=== PATIENT | female | born 1990 | race African-American/Black ===

== ENCOUNTER 2017-09-13 17:07 | Emergency (ER) | payer SELFPAY ==
[2017-09-13 17:19] VITALS: BP 117/64
--- NOTE | 2017-09-13 18:08 | RAD ---
Indication: Left orbit injury. AP, lateral, Leigh view of the orbits demonstrates no radiopaque foreign body. There appears to be nasal jewelry and tongue jewelry present. No other foreign body is noted. impression: No foreign body is noted in the orbits however jewelry in the nose and tongue noted.
[2017-09-13] MEDS ORDERED: Tetan/Diph/Pertus SYR(Tdap)* 0.5 ML SYR(BOOSTRIX) use SYR IM ONE ×2 (18:41→18:43)
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
== END 2017-09-13 18:57 | disposition home or self-care (01) ==
LOC: UCEAST 17:07
DX: S09.90XA Unspecified injury of head, initial encounter (principal); S01.112A Laceration without foreign body of left eyelid and periocular area, initial encounter; W50.0XXA Accidental hit or strike by another person, initial encounter; Y93.F9 Activity, other caregiving; Y92.199 Unspecified place in other specified residential institution as the place of occurrence of the external cause; Y99.0 Civilian activity done for income or pay; Z23 Encounter for immunization; J45.909 Unspecified asthma, uncomplicated; F32.9 Major depressive disorder, single episode, unspecified; Z90.49 Acquired absence of other specified parts of digestive tract; F17.210 Nicotine dependence, cigarettes, uncomplicated
CPT/HCPCS: 12001; 12011; 70150; 90471; 90715; 99212; G0463

== ENCOUNTER 2017-10-22 10:34 | Emergency (ER) | payer BC, OTHER ==
[2017-10-22] MEDS ORDERED: Ketorolac INJ* 60 MG/2 ML VIAL IM ONE (12:06)
[2017-10-22] MEDS ORDERED: Ketorolac INJ* 60 MG/2 ML VIAL ONE (12:08)
[2017-10-22] MEDS ORDERED: Clindamycin 600 MG IVPREMIX(* 600 MG/50 ML SDV IV ONE (12:16)
[2017-10-22] MEDS ORDERED: Ketorolac INJ* 30 MG/ML 1 ML VIAL IV PUSH ONE (12:16)
[2017-10-22] MEDS ORDERED: Ketorolac INJ* 15 MG/ML 1 ML VIAL IV PUSH ONE (12:16)
[2017-10-22] MEDS ORDERED: Ondansetron INJ* 2 MG/ML VIAL IV ONE (12:23)
[2017-10-22] MEDS ORDERED: Ondansetron INJ* 2 MG/ML VIAL ONE (12:24)
[2017-10-22] MEDS ORDERED: Lidocaine 1%* 5 ML VIAL INJ ONE (13:19)
--- NOTE | 2017-10-22 13:43 | ED ---
Throat Pain/Nasal Congestion - HPI Summary HPI Summary: 27F presents with dental pain for a week. She was seen by her dentist yesterday and started on amoxicillin and percocet. She states since last night the right side of her jaw has swollen up. She states she called her dentist and they told her to come here. She denies any drainage from the area. She denies any fever. She denies any chest pain, sob, of difficulty swallowing. She has appointment with her dentist tomorrow. She has only been taking percocet for her pain. - History of Current Complaint Chief Complaint: EDDentalPain Time Seen by Provider: 10/22/17 12:05 - Allergies/Home Medications Allergies/Adverse Reactions: Allergies Allergy/AdvReac Type Severity Reaction Status Date / Time No Known Allergies Allergy Verified 04/23/15 16:45 PMH/Surg Hx/FS Hx/Imm Hx Endocrine/Hematology History: Denies: Hx Diabetes Respiratory History: Reports: Hx Asthma - EXERCISE INDUCED Sensory History: Reports: Hx Contacts or Glasses Opthamlomology History: Reports: Hx Contacts or Glasses Psychiatric History: Reports: Hx Anxiety, Hx Depression, Hx Substance Abuse Denies: Hx of Violent Episodes Against Others - Surgical History Surgery Procedure, Year, and Place: cholecystectomy 2006 Infectious Disease History: No Infectious Disease History: Denies: History Other Infectious Disease, Traveled Outside the [place] in Last 30 Days - Family History Known Family History: Negative: Cardiac Disease, Hypertension, Diabetes - Social History Alcohol Use: Rare Substance Use Type: Reports: None Substance Use Comment - Amount & Last Used: marijuana occasionaly Smoking Status (MU): Light Every Day Tobacco Smoker Type: Cigarettes Amount Used/How Often: 1/4 PPD Length of Time of Smoking/Using Tobacco: 10 YEARS Have You Smoked in the Last Year: Yes Review of Systems Negative: Fever Positive: Dental Pain Negative: Chest Pain Negative: Shortness Of Breath All Other Systems Reviewed And Are Negative: Yes Physical Exam Triage Information Reviewed: Yes Vital Signs On Initial Exam: Initial Vitals Temp Pulse Resp BP Pulse Ox 98.4 F 70 18 125/71 100 10/22/17 10:36 10/22/17 10:36 10/22/17 10:36 10/22/17 10:36 10/22/17 10:36 Vital Signs Reviewed: Yes Appearance: Positive: Well-Appearing Skin: Positive: Warm, Dry Head/Face: Positive: Normal Head/Face Inspection Eyes: Positive: Normal, EOMI, HO, Conjunctiva Clear ENT: Positive: Normal ENT inspection, Pharynx normal, TMs normal Dental: Positive: Percussion Tenderness @ - 30, Abscess @ - 30, Other - no submandibular tenderness Neck: Positive: Supple, Nontender, No Lymphadenopathy Respiratory/Lung Sounds: Positive: Clear to Auscultation, Breath Sounds Present Cardiovascular: Positive: Normal, RRR Musculoskeletal: Positive: Normal Neurological: Positive: Normal Psychiatric: Positive: Normal - [place] Coma Scale Coma Scale Total: 15 Procedures - Incision and Drainage Site: lower right dental abscess Anesthesia: Topical, Local Instrument(s): Scalpel Diagnostics - Vital Signs Vital Signs Temp Pulse Resp BP Pulse Ox 10/22/17 10:36 98.4 F 70 18 125/71 100 - Laboratory Lab Statement: Any lab studies that have been ordered have been reviewed, and results considered in the medical decision making process. EENT Course/Dx - Course Course Of Treatment: 27F presents with dental pain for a week. She was seen by her dentist yesterday and started on amoxicillin and percocet. She states since last night the right side of her jaw has swollen up. She states she called her dentist and they told her to come here. She denies any drainage from the area. She denies any fever. She denies any chest pain, sob, of difficulty swallowing. She has appointment with her dentist tomorrow. She has only been taking percocet for her pain. on exam tenderness tooth 30 and abscess there. attempt I&D and minimial drainage from area. gave dose of iv clindamycin and toradol and feeling better. edenilson switch to clindamycin as will give better coverage. patient understand and agrees with plan. - Differential Diagnoses Differential Diagnoses: Dental Abscess, Dental Caries, Fractured Tooth - Diagnoses Provider Diagnoses: Dental abscess Discharge - Discharge Plan Condition: Good Disposition: HOME Prescriptions: Clindamycin HCl [Clindamycin 150 MG CAP*] 300 mg PO TID #61 cap Patient Education Materials: Dental Abscess (ED) Referrals: No Primary Care Phys,NOPCP [Primary Care Provider] - Additional Instructions: Take antibiotics: 2 tablets three times a day for 7 days Use ibuprofen every 6 hours and use pain medication as prescribed Place heat on area and gargle salt water Avoid hard, crunchy food until seen by dentist Return to ED if develop fever, shortness of breath, pain with eye movement or swelling around eye Images - Images Dental: 1 - dental pain
[2017-10-22] MEDS ORDERED: oxyCODONE/Acetamin 5/325 MG* TAB PO ONE (13:53)
[2017-10-22] MEDS ORDERED: oxyCODONE/Acetamin 5/325 MG* TAB ONE (13:56)
[2017-10-22 14:02] VITALS: BP 125/70
== END 2017-10-22 14:08 | disposition home or self-care (01) ==
LOC: ED 10:34
DX: K04.7 Periapical abscess without sinus (principal); F17.210 Nicotine dependence, cigarettes, uncomplicated
CPT/HCPCS: 96372; 96374; 99282; A9270-GY; J1885; J2405

== ENCOUNTER 2017-10-23 08:47 | Emergency (ER) | payer OTHER ==
[2017-10-23 10:34] VITALS: BP 128/62
--- NOTE | 2017-11-12 18:37 | ED ---
Cathryn Dunlap Thomas, scribed for Cyrus Solomon MD on 10/23/17 at 1020 . Throat Pain/Nasal Congestion - HPI Summary HPI Summary: The patient is a 27 year old female presenting to the ED complaining of right- sided dental pain since a week ago. She was [place] [facility] [place], and her pain has worsened since then and the swelling has grown. The pain is constant. The pain is rated 9/10. The pain is aggravated by eating and drinking. It is alleviated by nothing. Patient denies fever and chills. She is on Clindamycin. Her scheduled dentists appointment is next week. - History of Current Complaint Chief Complaint: EDDentalPain Time Seen by Provider: 10/23/17 09:57 Hx Obtained From: Patient Onset/Duration: Lasting Weeks - 1, Still Present Severity: Moderate Associated Signs And Symptoms: Positive: Negative Cough: None Related History: Other (Noted In Comments) - Dentist appointment next week - Allergies/Home Medications Allergies/Adverse Reactions: Allergies Allergy/AdvReac Type Severity Reaction Status Date / Time No Known Allergies Allergy Verified 04/23/15 16:45 PMH/Surg Hx/FS Hx/Imm Hx Previously Healthy: No Endocrine/Hematology History: Denies: Hx Diabetes Respiratory History: Reports: Hx Asthma - EXERCISE INDUCED Sensory History: Reports: Hx Contacts or Glasses Opthamlomology History: Reports: Hx Contacts or Glasses Psychiatric History: Reports: Hx Anxiety, Hx Depression, Hx Substance Abuse Denies: Hx of Violent Episodes Against Others - Surgical History Surgery Procedure, Year, and Place: cholecystectomy 2006 Infectious Disease History: No Infectious Disease History: Denies: History Other Infectious Disease, Traveled Outside the [place] in Last 30 Days - Family History Known Family History: Negative: Cardiac Disease, Hypertension, Diabetes - Social History Alcohol Use: Rare Substance Use Type: Reports: None Substance Use Comment - Amount & Last Used: marijuana occasionaly Smoking Status (MU): Light Every Day Tobacco Smoker Type: Cigarettes Amount Used/How Often: 1/4 PPD Length of Time of Smoking/Using Tobacco: 10 YEARS Have You Smoked in the Last Year: Yes Review of Systems Negative: Fever, Chills Positive: Dental Pain All Other Systems Reviewed And Are Negative: Yes Physical Exam - Summary Physical Exam Summary: Appearance: Well-appearing, Well-nourished Skin: Warm, Dry, No rash Eyes: Normal, PERRL, EOMI, sclera anicteric ENT: Her right lower jaw is swollen. Neck: Supple, nontender. She has tender lymphadenopathy under the right jaw that is submandibular and anterior cervical. Respiratory: Clear to auscultation Cardiovascular: S1, S2, no murmur, no rub, no gallop Abdomen: Soft, nontender, no organomegaly Bowel sounds: Present Musculoskeletal: Normal, Strength/ROM Intact, no edema, pulses symmetrical Neurological: Normal, A&Ox3, cranial nerves II-XII WNL, follows commands, gait not tested, sensation intact to pin and light touch Psychiatric: affect normal, behavior appropriate, dressed appropriately, judgment intact Triage Information Reviewed: Yes Vital Signs On Initial Exam: Initial Vitals Temp Pulse Resp BP Pulse Ox 97.3 F 78 18 134/66 97 10/23/17 08:50 10/23/17 08:50 10/23/17 08:50 10/23/17 08:50 10/23/17 08:50 Vital Signs Reviewed: Yes Diagnostics - Vital Signs Vital Signs Temp Pulse Resp BP Pulse Ox 10/23/17 08:50 97.3 F 78 18 134/66 97 - Laboratory Lab Statement: Any lab studies that have been ordered have been reviewed, and results considered in the medical decision making process. EENT Course/Dx - Course Assessment/Plan: The patient comes in pain control for a dental abscess that is currently being treated with Clindamycin. The patient was given pain medication and a prescprition. She is discharged to follow up at her scheduled appointment with her dentist next week. - Diagnoses Provider Diagnoses: Dental abscess Discharge - Discharge Plan Condition: Good Disposition: HOME Prescriptions: oxyCODONE/Acetamin 5/325 MG* [Percocet 5/325 TAB*] 1 tab PO Q6H PRN 7 Days #28 tab MDD 4 PRN Reason: Pain Patient Education Materials: Dental Abscess (ED) Referrals: No Primary Care Phys,NOPCP [Primary Care Provider] - The documentation as recorded by the Cathryn rowell Thomas accurately reflects the service I personally performed and the decisions made by me, Cyrus Solomon MD.
== END 2017-10-23 10:30 | disposition home or self-care (01) ==
LOC: ED 08:47
DX: K04.7 Periapical abscess without sinus (principal); K08.89 Other specified disorders of teeth and supporting structures; F17.210 Nicotine dependence, cigarettes, uncomplicated
CPT/HCPCS: 99281

== ENCOUNTER 2017-10-23 19:11 | Emergency (ER) | payer OTHER ==
[2017-10-23 20:35] LABS: Hematocrit 35 % (35-47); Hemoglobin 11.9 g/dl (12.0-16.0); Mean Corpuscular HGB Conc 34 g/dl (31-36); Mean Corpuscular Hemoglobin 30 pg (27-31); Mean Corpuscular Volume 90 fL (80-97); Mean Platelet Volume 9 um3 (7.4-10.4); Red Blood Count 3.92 10^6/ul (4.0-5.4); Red Cell Distribution Width 13 % (10.5-15); White Blood Count 6.9 10^3/ul (3.5-10.8)
[2017-10-23] MEDS ORDERED: Ketorolac INJ* 30 MG/ML 1 ML VIAL IV PUSH ONE (20:39)
[2017-10-23] MEDS ORDERED: Clindamycin 600 MG IVPREMIX(* 600 MG/50 ML SDV IV ONE (20:41)
[2017-10-23 20:49] LABS: BUN/Creatinine Ratio 25.5 (8-20); Calcium 9.2 mg/dL (8.6-10.3); EGFR African American 171.8 (>60); EGFR Non-African American 133.6 (>60); Potassium 3.6 mmol/L (3.5-5.0)
[2017-10-23] MEDS ORDERED: Iohexol 300* (CONTRAST) 10 ML SDV IV ONE (20:53)
--- NOTE | 2017-10-23 21:17 | RAD ---
HISTORY: Right facial swelling, dental pain COMPARISONS: None TECHNIQUE: Multiple contiguous axial CT scans were obtained of the face with intravenous contrast, with coronal and sagittal multiplanar reformations. FINDINGS: Evaluation limited by streak artifact from dental amalgam.. BONES: There is no displaced fracture or dislocation. The orbital rim is intact. The zygomatic arch is intact. The pterygoid plates are intact. ORBITS: The globes are round. The optic nerves are symmetric. The extraocular musculature is normal. There is no post septal or intraconal inflammatory change. There is no retrobulbar hematoma. PARANASAL SINUSES: The paranasal sinuses are clear. BRAIN AND SOFT TISSUE: There is stranding of the subcutaneous fat along the right body and angle of the mandible with multiple prominent but not pathologically enlarged submandibular lymph nodes. There is no loculated fluid collection to suggest abscess. OTHER: None. IMPRESSION: RIGHT FACIAL CELLULITIS, LIKELY ODONTOGENIC GIVEN THE HISTORY OF DENTAL PAIN, WITHOUT LOCULATED FLUID COLLECTION TO SUGGEST ABSCESS.
[2017-10-23 22:24] VITALS: BP 123/91
--- NOTE | 2017-10-23 22:37 | ED ---
Channing Dunlap Tiffany, scribed for Karla Rodriguez MD on 10/23/17 at 2036 . Throat Pain/Nasal Congestion - HPI Summary HPI Summary: This patient is a 27 year old F presenting to [facility] accompanied by male significant other with a chief complaint of right facial swelling that worsened since this morning. The swelling has traveled down to her throat. The patient rates the pain 10/10 in severity. Symptoms aggravated by nothing. Symptoms alleviated by nothing. Patient reports increased throat pain and shortness of breath. Patient denies fever and wheezing. The patient was seen in the ER on 10/22/17 and 10/23/17 at 10:00 for the same chief complaint. She is taking Clindamycin and percocet. She was on Amoxicillin prior to being changed to the clindamycin on 10/23/17. Her LNMP was 10/16/17. - History of Current Complaint Chief Complaint: EDGeneral Time Seen by Provider: 10/23/17 20:07 Hx Obtained From: Patient, Medical Records Onset/Duration: Lasting Days, Still Present, Worse Since - This morning Severity: Severe Associated Signs And Symptoms: Positive: Dysphagia Cough: None - Allergies/Home Medications Allergies/Adverse Reactions: Allergies Allergy/AdvReac Type Severity Reaction Status Date / Time No Known Allergies Allergy Verified 04/23/15 16:45 PMH/Surg Hx/FS Hx/Imm Hx Previously Healthy: No Endocrine/Hematology History: Denies: Hx Diabetes Respiratory History: Reports: Hx Asthma - EXERCISE INDUCED Sensory History: Reports: Hx Contacts or Glasses Opthamlomology History: Reports: Hx Contacts or Glasses Psychiatric History: Reports: Hx Anxiety, Hx Depression, Hx Substance Abuse Denies: Hx of Violent Episodes Against Others - Surgical History Surgery Procedure, Year, and Place: cholecystectomy 2006 Infectious Disease History: No Infectious Disease History: Denies: History Other Infectious Disease, Traveled Outside the [place] in Last 30 Days - Family History Known Family History: Negative: Cardiac Disease, Hypertension, Diabetes - Social History Alcohol Use: Rare Hx Substance Use: Yes Substance Use Comment - Amount & Last Used: marijuana occasionaly Hx Tobacco Use: Yes Smoking Status (MU): Light Every Day Tobacco Smoker Type: Cigarettes Amount Used/How Often: 1/4 PPD Length of Time of Smoking/Using Tobacco: 10 YEARS Have You Smoked in the Last Year: Yes Review of Systems Positive: Other - Right facial swelling. Negative: Fever Positive: Sore Throat Positive: Shortness Of Breath, Other - NEGATIVE: wheezing Gastrointestinal: Negative Skin: Negative - no redness of swollen face Psychological: Normal All Other Systems Reviewed And Are Negative: Yes Physical Exam Triage Information Reviewed: Yes Vital Signs On Initial Exam: Initial Vitals Temp Pulse Resp BP Pulse Ox 99.2 F 78 20 133/69 100 10/23/17 19:15 10/23/17 19:15 10/23/17 19:15 10/23/17 19:15 10/23/17 19:15 Vital Signs Reviewed: Yes Appearance: Positive: Well-Appearing, Well-Nourished, Pain Distress Skin: Positive: Warm, Skin Color Reflects Adequate Perfusion, Other - swelling right mandible Head/Face: Positive: Normal Head/Face Inspection, Other - Facial swelling along the mandible face and submandibular area Eyes: Positive: EOMI, Conjunctiva Clear ENT: Positive: Pharynx normal - No pharynx swelling, Other - Airway is patent Dental: Positive: Other - Diffuse swelling and tenderness on percussion of tooth 31 and 30 Neck: Positive: Supple, Nontender, Enlarged Nodes @ - right ant cervical Respiratory/Lung Sounds: Positive: Clear to Auscultation, Breath Sounds Present - Normal, Other - No respiratory distress Cardiovascular: Positive: RRR, Pulses are Symmetrical in both Upper and Lower Extremities. Negative: Murmur Musculoskeletal: Positive: Strength/ROM Intact Neurological: Positive: Sensory/Motor Intact, Alert, Oriented to Person Place, Time, Facial Symmetry, Speech Normal Psychiatric: Positive: Normal - [place] Coma Scale Coma Scale Total: 15 Diagnostics - Vital Signs Vital Signs Temp Pulse Resp BP Pulse Ox 10/23/17 19:15 99.2 F 78 20 133/69 100 - Laboratory Lab Results: Lab Results 10/23/17 10/23/17 Range/Units 20:25 20:25 WBC 6.9 (3.5-10.8) 10^3/ul RBC 3.92 L (4.0-5.4) 10^6/ul Hgb 11.9 L (12.0-16.0) g/dl Hct 35 (35-47) % MCV 90 (80-97) fL MCH 30 (27-31) pg MCHC 34 (31-36) g/dl RDW 13 (10.5-15) % Plt Count 215 (150-450) 10^3/ul MPV 9 (7.4-10.4) um3 Sodium 138 (133-145) mmol/L Potassium 3.6 (3.5-5.0) mmol/L Chloride 106 (101-111) mmol/L Carbon Dioxide 27 (22-32) mmol/L Anion Gap 5 (2-11) mmol/L BUN 14 (6-24) mg/dL Creatinine 0.55 (0.51-0.95) mg/dL Est GFR ( Amer) 171.8 (>60) Est GFR (Non-Af Amer) 133.6 (>60) BUN/Creatinine Ratio 25.5 H (8-20) Glucose 86 (70-100) mg/dL Calcium 9.2 (8.6-10.3) mg/dL Result Diagrams: 10/23/17 20:25 10/23/17 20:25 Lab Statement: Any lab studies that have been ordered have been reviewed, and results considered in the medical decision making process. - CT Maxillofacial CT Interpretation Completed By: Radiologist - RIGHT FACIAL CELLULITIS, LIKELY ODONTOGENIC GIVEN THE HISTORY OF DENTAL PAIN, WITHOUT LOCULATED FLUID COLLECTION TO SUGGEST ABSCESS. ED physician has reviewed this radiology report. Re-Evaluation - Re-Evaluation First Eval Re-Evaluation Time: 22:06 Change: Improved Comment: The patient's pain has decreased to 5/10 after Torodal. We discussed treatment and pain relief. Patient voices her understanding. EENT Course/Dx - Course Course Of Treatment: Per [facility] #[id number], patient was prescribed 15 Percocet tabs on 10/21/[address] Angelica Whaley. Per ED record 10/23/17 AM, Dr. Solomon prescribed patient with 28 Percocet tabs. Per patient upon evaluation, she reports having only [address] Maxiollfacial reveals, per radiologist , RIGHT FACIAL CELLULITIS, LIKELY ODONTOGENIC GIVEN THE HISTORY OF DENTAL PAIN, WITHOUT LOCULATED FLUID COLLECTION TO SUGGEST ABSCESS. In the ED course the patient was given Cleocin, Omnipaque and Toradol. Patient will be discharged and instructed to continue taking her prescribed pain medication from her earlier ED visits. The patient is agreeable with this plan. - Differential Diagnoses Differential Diagnoses: Cellulitis, Dental Abscess, Gingivitis, Periodontic Abscess - Diagnoses Provider Diagnoses: Cellulitis, Pain, dental Discharge - Discharge Plan Condition: Stable Disposition: HOME Patient Education Materials: Cellulitis (ED) Referrals: [facility]FERR[facility] [Outside] No Primary Care Phys,NOPCP [Primary Care Provider] - Additional Instructions: Continue your clindamycin as prescribed. You were given toradol 30mg IV and clindamycin 600mg IV while you were in the ER. The CT of your face and neck showed the swelling and facial cellulitis, but no abscess or collection that needs to be drained. Return to the ER if any new or worsening symptoms including, but not limited to , fever, vomiting, shortness of breath. The documentation as recorded by the Channing rowell Tiffany accurately reflects the service I personally performed and the decisions made by me, Karla Rodriguez MD.
== END 2017-10-23 22:24 | disposition home or self-care (01) ==
LOC: ED 19:11
DX: L03.90 Cellulitis, unspecified (principal); J02.9 Acute pharyngitis, unspecified; R06.02 Shortness of breath; F17.210 Nicotine dependence, cigarettes, uncomplicated
CPT/HCPCS: 36415; 70487; 80048; 85027; 96374; 96375; 99283; J1885; Q9967

== ENCOUNTER → 2018-10-09 13:10 | Emergency (ER) | payer SELFPAY ==
[~2018-10-09 13:10] MED LIST: Iohexol 300* (CONTRAST) 10 ML SDV IV ONE; Magnesium Oxide TAB* 400 MG PO ONE; NS 0.9% 1000 ML* 1,000 ML IV ONE; Potassium Chlor TAB* 20 MEQ TAB.ER PO ONE
--- NOTE | 2018-10-09 13:23 | ED ---
Abdominal Pain/Female - HPI Summary HPI Summary: Patient is a 28 y/o F brought in by ambulance w/ c/o lower abdominal pain, N/V and syncope. Abdominal pain, N/V onset at 0500 today. Pain is described as sharp. She denies diarrhea, last bowel movement was this morning, states she cannot keep any food down. Patient went to [facility], where she had a syncopal episode. She notes that she felt intense pain and fatigued before syncopal episode. EMS reports that patient was given Zofran, 12 lead EKG was clean, BG 139, o2 sat 100. Patient denies Hx of prior episodes. There is a possibility of . Patient states LNMP was august 28. During September, she reports that she had one day of vaginal bleeding, notes that it irregular for her periods to last such a short amount of time. PMHx, PSHx is denied. Occasional alc usage, no smoking cigarettes, no substances usage is reported. In the room, patient rates pain 7/10. Home medications and allergies are reviewed. - History of Current Complaint Stated Complaint: NAUSEOUS/WEAKNESS Hx Obtained From: Patient Hx Last Menstrual Period: 08/22/17 Onset/Duration: Lasting Minutes - onset 0500, Still Present, Resolved - syncope Timing: Hours - onset 0500 Severity Currently: Severe - 7/10 Pain Scale Used: 0-10 Numeric - 7/10 Location: Other - lower abdomen Radiates: No Aggravating Factor(s): Nothing Alleviating Factor(s): Nothing Associated Signs and Symptoms: Positive: Nausea, Vomiting, Other: - syncope, fatigue. Negative: Diarrhea Allergies/Adverse Reactions: Allergies Allergy/AdvReac Type Severity Reaction Status Date / Time No Known Allergies Allergy Verified 04/23/15 16:45 PMH/Surg Hx/FS Hx/Imm Hx Endocrine/Hematology History: Denies: Hx Diabetes Respiratory History: Reports: Hx Asthma - EXERCISE INDUCED Sensory History: Reports: Hx Contacts or Glasses Opthamlomology History: Reports: Hx Contacts or Glasses Psychiatric History: Reports: Hx Anxiety, Hx Depression, Hx Substance Abuse Denies: Hx of Violent Episodes Against Others - Surgical History Surgery Procedure, Year, and Place: cholecystectomy 2006 Infectious Disease History: Denies: History Other Infectious Disease - Family History Known Family History: Negative: Cardiac Disease, Hypertension, Diabetes - Social History Alcohol Use: Rare Hx Substance Use: Yes Substance Use Type: Reports: None Substance Use Comment - Amount & Last Used: marijuana occasionaly Hx Tobacco Use: Yes Smoking Status (MU): Light Every Day Tobacco Smoker Type: Cigarettes Amount Used/How Often: 1/4 PPD Length of Time of Smoking/Using Tobacco: 10 YEARS Have You Smoked in the Last Year: Yes Review of Systems Positive: Fatigue Positive: Abdominal Pain, Vomiting, Nausea. Negative: Diarrhea Positive: Syncope All Other Systems Reviewed And Are Negative: Yes Physical Exam - Summary Physical Exam Summary: VITAL SIGNS: Reviewed. GENERAL: Patient is a well-developed and nourished female who is lying comfortable in the stretcher. Patient is not in any acute respiratory distress. HEAD AND FACE: Normocephalic and atraumatic. EYES: PERRLA, EOMI x 2, No injected conjunctiva. EARS: Hearing grossly intact. Ear canals and tympanic membranes are WNL. MOUTH: Oropharynx within normal limits. NECK: Supple, trachea is midline, no adenopathy, no JVD. CHEST: Symmetric, no tenderness at palpation LUNGS: Clear to auscultation bilaterally. No wheezing or crackles. CVS: RRR, S1 and S2 present, no murmurs or gallops appreciated. ABDOMEN: Soft, non-tender. No signs of distention. Positive bowel sounds. No rebound no guarding, and no masses palpated. No abdominal bruit or pulsations. EXTREMITIES: FROM in all major joints, no edema, no cyanosis or clubbing. NEURO: Alert and oriented x 3. No acute neurological deficits. Speech is normal. SKIN: Dry and warm Triage Information Reviewed: Yes Vital Signs On Initial Exam: Initial Vitals Temp Pulse Resp BP Pulse Ox 98.2 F 74 16 131/67 100 10/09/18 13:13 10/09/18 13:13 10/09/18 13:13 10/09/18 13:13 10/09/18 13:13 Vital Signs Reviewed: Yes Diagnostics - Laboratory Result Diagrams: 10/09/18 13:35 10/09/18 13:35 Lab Statement: Any lab studies that have been ordered have been reviewed, and results considered in the medical decision making process. - CT ABD/PEL CT CT Interpretation Completed By: Radiologist Summary of CT Findings: CT ABD/PEL IMPRESSION: 1. NO ACUTE FINDING IS SEEN. 2. THE APPENDIX IS NOT WELL-DEFINED ON THIS STUDY WITHOUT ORAL CONTRAST. IF THERE IS. CLINICAL CONCERN FOR APPENDICITIS CONSIDER REPEAT CT IMAGING OF THE PELVIS WITH ORAL. CONTRAST. THIS REPORT WAS REVIEWED BY ED PHYSICIAN. - EKG 1346 Cardiac Rate: NL - RATE OF 75 BPM EKG Rhythm: Sinus Rhythm EKG Comparison: No Significant Change - NO SIGNIFICANT CHANGES COMPARED WITH EKG Summary of EKG Findings: EKG SHOWED SINUS RHYTHM WITH RATE OF 75 BPM, NO ST ELEVATION, NO SIGNIFICANT CHANGES COMPARED WITH 08/04/15 EKG Re-Evaluation - Re-Evaluation First Eval Re-Evaluation Time: 16:48 Change: Improved Comment: She reports that her pain has resolved. I offered the patient an pelvic exam or pelvic ultrasound but the patient declines. She reports that her symptoms have resolved and she has no pain at this time. I discussed all the findings and test results with the patient. Patient was instructed to return to the emergency room immediately if any of the symptoms return or worsens. Plan of care was discussed with the patient and understands and agrees. All questions were answered at patient satisfaction. There were no further complaints or concerns. Lung exam before discharge: CTA B/L. Good air exchange. No wheezing or crackles heard. CVS: S1 and S2 present. No murmurs appreciated. Patient is alert and oriented x 3. Patient is hemodynamically stable. Patient will be discharged home with follow up PCP in the next 2-3 days Abdominal Pain Fem Course/Dx - Course Course Of Treatment: Patient is a 28 y/o F brought in by ambulance w/ c/o lower abdominal pain, N/V and syncope. Abdominal pain, N/V onset at 0500 today. Pain is described as sharp. She denies diarrhea, last bowel movement was this morning , states she cannot keep any food down. Patient went to [facility], where she had a syncopal episode. She notes that she felt intense pain and fatigued before syncopal episode. EMS reports that patient was given Zofran, 12 lead EKG was clean, BG 139, o2 sat 100. Patient denies Hx of prior episodes. There is a possibility of . Patient states LNMP was august 28. During September , she reports that she had one day of vaginal bleeding, notes that it irregular for her periods to last such a short amount of time. PMHx, PSHx is denied. Occasional alc usage, no smoking cigarettes, no substances usage is reported. In the room, patient rates pain 7/10. Home medications and allergies are reviewed. Blood work without any significant abnormality except for potassium of 3.4 for which the patient was given potassium by mouth and magnesium of 1.6 for which the patient was given magnesium by mouth. WBCs of 11.5 however the CRP is within normal limits. Abdominopelvic CT IMPRESSION: 1. NO ACUTE FINDING IS SEEN. 2. THE APPENDIX IS NOT WELL-DEFINED ON THIS STUDY WITHOUT ORAL CONTRAST. IF THERE IS CLINICAL CONCERN FOR APPENDICITIS CONSIDER REPEAT CT IMAGING OF THE PELVIS WITH ORAL CONTRAST. In the ED course the patient has been stable. She reports that her pain has resolved. I offered the patient an pelvic exam or pelvic ultrasound but the patient declines. She reports that her symptoms have resolved and she has no pain at this time. I discussed all the findings and test results with the patient. Patient was instructed to return to the emergency room immediately if any of the symptoms return or worsens. Plan of care was discussed with the patient and understands and agrees. All questions were answered at patient satisfaction. There were no further complaints or concerns. Lung exam before discharge: CTA B/L. Good air exchange. No wheezing or crackles heard. CVS: S1 and S2 present. No murmurs appreciated. Patient is alert and oriented x 3. Patient is hemodynamically stable. Patient will be discharged home with follow up PCP in the next 2-3 days - Diagnoses Provider Diagnoses: Lower abdominal pain Discharge - Sign-Out/Discharge Documenting (check all that apply): Patient Departure - discharge - Discharge Plan Condition: Stable Disposition: HOME Patient Education Materials: Abdominal Pain (ED) Referrals: [facility] [Outside] - 3 Days Additional Instructions: RETURN TO ED FOR ANY NEW OR WORSENING SYMPTOMS. FOLLOW UP WITH PRIMARY CARE PHYSICIAN IN 2-3 DAYS. - Billing Disposition and Condition Condition: STABLE Disposition: Home - Attestation Statements Document Initiated by Nato: Yes Documenting Scribe: JAYE LIRIANO Provider For Whom Nato is Documenting (Include Credential): GUANAKO KAUR MD Scribe Attestation: JAYE Dunlap , scribed for GUANAKO KAUR MD on 10/09/18 at 1838. Scribe Documentation Reviewed: Yes Provider Attestation: The documentation as recorded by the scribe, JAYE KOLENDA accurately reflects the service I personally performed and the decisions made by me, GUANAKO KAUR MD Status of Scribe Document: Viewed
[2018-10-09 13:43] LABS: ABS Basophils 0.1 10^3/ul (0-0.2); ABS Eosinophils 0 10^3/ul (0-0.6); ABS Lymphocytes 0.9 10^3/ul (1.0-4.8); ABS Monocytes 0.5 10^3/ul (0-0.8); ABS Neutrophils 9.9 10^3/ul (1.5-7.7); ABS Nucleated RBC 0 10^3/ul; Eosinophil % 0.2 %; Hematocrit 38 % (35-47); Lymphocyte % 7.7 %; Mean Corpuscular HGB Conc 34 g/dl (31-36); Mean Corpuscular Hemoglobin 30 pg (27-31); Mean Corpuscular Volume 89 fL (80-97); Mean Platelet Volume 9.4 fL (7.4-10.4); Nucleated Red Blood Cells % 0; Platelet Count 231 10^3/ul (150-450); Red Blood Count 4.29 10^6/ul (4.00-5.40); Red Cell Distribution Width 13 % (10.5-15); White Blood Count 11.4 10^3/ul (3.5-10.8)
[2018-10-09 14:04] LABS: EGFR Non-African American 103.8 (>60)
[2018-10-09 14:37] LABS: Urine Appearance Cloudy; Urine Blood Negative (Negative); Urine Color Yellow; Urine Ketones 1+ (Negative); Urine Protein 2+(100 mg/dL) (Negative); Urine Red Blood Cell 2+(6-10/hpf) (Absent); Urine Specific Gravity 1.025 (1.010-1.030); Urine Urobilinogen Negative (Negative); Urine White Blood Cell Trace(0-5/hpf) (Absent)
[2018-10-09 17:16] VITALS: BP 106/64
== END | disposition home or self-care (01) ==
LOC: ED 13:10
DX: R10.30 Lower abdominal pain, unspecified (principal); R11.2 Nausea with vomiting, unspecified; R55 Syncope and collapse; R53.83 Other fatigue; F17.210 Nicotine dependence, cigarettes, uncomplicated
CPT/HCPCS: 36415; 74177; 80053; 80307; 81003; 81015; 83690; 83735; 84702; 85025; 86140; 87086; 93005; 99282; A9270-GY; Q9967

== ENCOUNTER 2019-02-07 15:13 | Emergency (ER) | payer BC, OTHER ==
[2019-02-07] MEDS ORDERED: NS 0.9% 1000 ML** 1,000 ML IV ONE (15:49)
[2019-02-07] MEDS ORDERED: Ondansetron INJ* 2 MG/ML VIAL IV ONE (15:49)
--- NOTE | 2019-02-07 15:49 | ED ---
GI/ HPI - HPI Summary HPI Summary: This patient is a 29 year old F presenting to ED with a chief complaint of N/V since 1 day ago. The patient says she is 8 weeks although not confirmed. The CC is described as acid and brown stuff. The patient rates the pain 3/10 in severity. Symptoms aggravated by PO. Symptoms alleviated by nothing. Patient reports dehydration, abdominal pain (like when you eat too much), diarrhea (since a couple days ago), light-headed, and insomnia. Patient denies fever, chills, hematuria, dysuria, back pain, vaginal bleeding, and frequent urination. LNMP was 12/23/18. Patient has 2 children currently. SHx holecystectomy. Denies recent exposure to illness. - History of Current Complaint Chief Complaint: EDNauseaVomitDiarrh Time Seen by Provider: 02/07/19 15:37 Stated Complaint: 7 OR 8 WEEKS PREG AND VOMITING PER PT Hx Obtained From: Patient Hx Last Menstrual Period: 08/22/17 Onset/Duration: Started Days Ago - since 1 day ago., Still Present Timing: Intermittent - intermittent vomiting, Lasting Days - since 1 day ago Severity: Mild - 3/10 Current Severity: Mild - 3/10 Pain Intensity: 3 Location of Pain: Other - like when you eat too much Associated Signs and Symptoms: Positive: Nausea, Vomiting, Diarrhea, Lightheadedness, Abdominal Pain. Negative: Back Pain, Fever, Hematuria, Dysuria , Chills - Additional Pertinent History Primary Care Physician: Aurea - Allergy/Home Medications Allergies/Adverse Reactions: Allergies Allergy/AdvReac Type Severity Reaction Status Date / Time No Known Allergies Allergy Verified 02/07/19 15:19 Home Medications: Home Medications Pnv No.121/Iron/Folic Acid [ Multivitamin Tablet] 1 tab PO DAILY [History Confirmed 02/07/19] PMH/Surg Hx/FS Hx/Imm Hx Endocrine/Hematology History: Denies: Hx Diabetes Cardiovascular History: Denies: Hx Hypertension Respiratory History: Reports: Hx Asthma - EXERCISE INDUCED History: Denies: Hx Renal Disease Sensory History: Reports: Hx Contacts or Glasses Opthamlomology History: Reports: Hx Contacts or Glasses Psychiatric History: Reports: Hx Anxiety, Hx Depression, Hx Substance Abuse Denies: Hx of Violent Episodes Against Others - Surgical History Surgery Procedure, Year, and Place: cholecystectomy 2006 Infectious Disease History: No Infectious Disease History: Denies: History Other Infectious Disease, Traveled Outside the [place] in Last 30 Days - Family History Known Family History: Negative: Cardiac Disease, Hypertension, Diabetes - Social History Alcohol Use: Rare Hx Substance Use: Yes Substance Use Type: Reports: None Substance Use Comment - Amount & Last Used: marijuana occasionaly Hx Tobacco Use: Yes Smoking Status (MU): Light Every Day Tobacco Smoker Type: Cigarettes Amount Used/How Often: 1/4 PPD Length of Time of Smoking/Using Tobacco: 10 YEARS Have You Smoked in the Last Year: Yes Review of Systems Positive: Other - dehydration. Negative: Fever, Chills Negative: Erythema Negative: Sore Throat Negative: Chest Pain Negative: Shortness Of Breath, Cough Positive: Abdominal Pain - "like when you eat too much", Vomiting, Diarrhea, Nausea Positive: other - denies vaginal bleeding. Negative: dysuria, frequency, hematuria Positive: Other - denies back pain. Negative: Myalgia, Edema Negative: Rash Neurological: Other - light-headedness and insomnia; denies dizziness All Other Systems Reviewed And Are Negative: Yes Physical Exam - Summary Physical Exam Summary: Constitutional: Well-developed, Well-nourished, Alert. (-) Distressed Skin: Warm, Dry HENT: Normocephalic; Atraumatic Eyes: Conjunctiva normal Neck: Musculoskeletal ROM normal neck. (-) JVD, (-) Stridor, (-) Tracheal deviation Cardio: Rhythm regular, rate normal, Heart sounds normal; Intact distal pulses; The pedal pulses are 2+ and symmetric. Radial pulses are 2+ and symmetric. (-) Murmur Pulmonary/Chest wall: Effort normal. (-) Respiratory distress, (-) Wheezes, (-) Rales Abd: Soft, (-) epigastric tenderness, (-) Distension, (-) Guarding, (-) Rebound Musculoskeletal: (-) Edema Lymph: (-) Cervical adenopathy Neuro: Alert, Oriented x3 Psych: Mood and affect Normal Triage Information Reviewed: Yes Vital Signs On Initial Exam: Initial Vitals Temp Pulse Resp BP Pulse Ox 98.0 F 62 16 122/65 100 02/07/19 15:17 02/07/19 15:17 02/07/19 15:17 02/07/19 15:17 02/07/19 15:17 Vital Signs Reviewed: Yes Diagnostics - Vital Signs Vital Signs Temp Pulse Resp BP Pulse Ox 02/07/19 15:17 98.0 F 62 16 122/65 100 - Laboratory Result Diagrams: 02/07/19 15:52 02/07/19 15:52 Lab Statement: Any lab studies that have been ordered have been reviewed, and results considered in the medical decision making process. - Ultrasound No standard instances Ultrasound Interpretation Completed By: Radiologist Summary of Ultrasound Findings: US reveals live intrauterine of 6 weeks and 6 days. MANFRED by current ultrasound is 07/28/2019. Dr. Patten has reviewed this radiology report. GIGU Course/Dx - Course Assessment/Plan: This patient is a 29 year old F presenting to ED with a chief complaint of N/V since 1 day ago. In the ED course, the patient was given fluids and Zofran. US reveals live intrauterine of 6 weeks and 6 days. MANFRED by current ultrasound is 07/28/2019. This patient will be discharged with dx of gastroenteritis and early . Patient understands and agrees with this plan. - Diagnoses Differential Diagnoses - Female: Other - gastroenteritis and early Provider Diagnoses: Gastroenteritis, Early stage of Discharge - Sign-Out/Discharge Documenting (check all that apply): Patient Departure - discharge Patient Received Moderate/Deep Sedation with Procedure: No - Discharge Plan Condition: Stable Disposition: HOME Patient Education Materials: Gastroenteritis (ED), (ED) Referrals: Kaity Wagner MD [Medical Doctor] - 2 Days Additional Instructions: RETURN TO THE EMERGENCY DEPARTMENT FOR CHANGING OR WORSENING SYMPTOMS - Attestation Statements Document Initiated by Scribe: Yes Documenting Scribe: Ivan Redding Provider For Whom Scribe is Documenting (Include Credential): Nhan Patten MD Scribe Attestation: Ivan Dunlap, scribed for Nhan Patten MD on 02/07/19 at 1821. Status of Scribe Document: Ready
[2019-02-07 16:02] LABS: ABS Basophils 0.1 10^3/ul (0-0.2); ABS Eosinophils 0.1 10^3/ul (0-0.6); ABS Lymphocytes 1.9 10^3/ul (1.0-4.8); ABS Monocytes 0.6 10^3/ul (0-0.8); ABS Neutrophils 5.9 10^3/ul (1.5-7.7); ABS Nucleated RBC 0 10^3/ul; Eosinophil % 1.5 %; Hematocrit 36 % (33-41); Hemoglobin 12.3 g/dL (12.0-16.0); Lymphocyte % 22.1 %; Mean Corpuscular HGB Conc 34 g/dL (31-36); Mean Corpuscular Hemoglobin 30 pg (27-31); Mean Corpuscular Volume 89 fL (80-97); Mean Platelet Volume 8.9 fL (7.4-10.4); Nucleated Red Blood Cells % 0.1; Platelet Count 225 10^3/uL (150-450); Red Blood Count 4.06 10^6 /uL (3.70-4.87); Red Cell Distribution Width 13 % (10.5-15); White Blood Count 8.6 10^3/uL (3.5-10.8)
[2019-02-07 16:47] LABS: Albumin 4.4 g/dL (3.2-5.2); Albumin/Globulin Ratio 1.6 (1-3); BUN/Creatinine Ratio 19.6 (8-20); C Reactive Protein 8.7 mg/L (<8.01); Calcium 9.5 mg/dL (8.6-10.3); EGFR African American 173.7 (>60); EGFR Non-African American 143.6 (>60); Globulin 2.7 g/dL (2-4); Potassium 3.6 mmol/L (3.5-5.0); Total Bilirubin 0.5 mg/dL (0.2-1.0); Total Protein 7.1 g/dL (6.4-8.9)
[2019-02-07 18:11] LABS: Urine Appearance Clear; Urine Bilirubin Negative (Negative); Urine Blood Negative (Negative); Urine Color Straw; Urine Glucose Negative (Negative); Urine Ketones 1+ (Negative); Urine Nitrite Negative (Negative); Urine Protein Negative (Negative); Urine Specific Gravity 1.008 (1.010-1.030); Urine Urobilinogen Negative (Negative)
[2019-02-07 18:33] VITALS: BP 137/56
== END 2019-02-07 18:32 | disposition home or self-care (01) ==
LOC: ED 15:13
DX: O26.891 Other specified pregnancy related conditions, first trimester (principal); K52.9 Noninfective gastroenteritis and colitis, unspecified; N83.12 Corpus luteum cyst of left ovary; Z3A.01 Less than 8 weeks gestation of pregnancy; J45.990 Exercise induced bronchospasm; F17.210 Nicotine dependence, cigarettes, uncomplicated; F41.9 Anxiety disorder, unspecified; F32.9 Major depressive disorder, single episode, unspecified; Z90.49 Acquired absence of other specified parts of digestive tract
CPT/HCPCS: 36415; 76815; 80053; 81003; 83605; 83690; 84702; 85025; 86140; 96361; 96374; 99283; J2405